=== PATIENT | male | born 1990 | race African-American/Black ===

== ENCOUNTER 2018-09-11 15:12 | Outpatient (CLI) | payer OTHER ==
--- NOTE | 2018-09-13 08:04 | MRI Report ---
Reason: PAIN IN LEFT KNEE Procedure Date: 09/11/2018 Accession Number: [id number] / [id number] Procedure: MRI - Knee LT W/O CPT Code: FULL RESULT: EXAM: LEFT KNEE MRI WITHOUT CONTRAST. EXAM DATE: 09/11/2018 04:20 PM. CLINICAL HISTORY: Left knee pain while playing football. Popping and clicking. History of ACL repair. COMPARISON: None. TECHNIQUE: Multiplanar, multisequence T1-weighted and fluid-sensitive sequences of the knee without contrast. Other: None. FINDINGS: Bones: No fractures. Periarticular reactive marrow edema is in the medial and lateral compartments. Minimal osteophytes are seen. Articular Cartilage: The patellofemoral articular cartilage is intact. There is moderate thinning and surface irregularity in the medial compartment. The inferior lateral femoral condyle articular cartilage has a focal area of severe cartilage loss. Medial Meniscus: The posterior horn of the medial meniscus contains an intrameniscal ossicle. Overall it is small in size, suggestive of partial meniscectomy. Lateral Meniscus: The lateral meniscus is intact. Cruciate Ligaments: The patient has had anterior cruciate ligament reconstruction procedure and the graft is completely torn. The posterior cruciate ligament is intact. Collateral Ligaments: The medial collateral and lateral collateral ligamentous structures are intact. Tendons: The quadriceps, patellar, semimembranosus, and popliteus tendons are unremarkable. Musculature: No edema or fatty atrophy. Other: A moderate effusion is seen. No popliteal cyst. No loose bodies. The medial and lateral retinacula are intact. The subcutaneous tissues and fat pads are unremarkable. IMPRESSION: 1. Mild osteoarthritis. 2. Degeneration of the medial meniscus. 3. Complete tear of anterior cruciate ligament reconstruction graft. 4. Moderate effusion. [facility] MUSCULOSKELETAL RADIOLOGY SECTION
== END 2018-09-11 15:13 | disposition home or self-care (01) ==
LOC: DI 15:12
PROVIDERS: ATTEND General Practice
DX: M17.12 Unilateral primary osteoarthritis, left knee (principal); S83.512A Sprain of anterior cruciate ligament of left knee, initial encounter; M25.462 Effusion, left knee; Z98.890 Other specified postprocedural states

== ENCOUNTER 2020-06-30 11:18 | Emergency (ER) | payer OTHER ==
--- NOTE | 2020-06-30 11:46 | ED Physician Documentation ---
PD HPI LOWER EXT INJURY - Stated complaint Stated Complaint: R LEG PAIN - Chief complaint Chief Complaint: Ext Problem - History obtained from History obtained from: Patient - History of Present Illness PD HPI LOW EXT INJURY LOCATION: Right, Thigh, Calf Type of injury: Other (worked out at gym as usual 5 days ago, doing leg workout particularly, and noted onset of some cramping pain thigh that progressed down to back of knee and calf as well the past couple days. No swelling in foot nor lower leg. No rash. Pain and aching is main complaint. No back pain.). No: Fall, Twist, Blunt / blow Timing - onset: How many days ago (5) Timing - duration: Days (5) Timing - details: Gradual onset, Still present Worsened by: Moving, Palpating Associated symptoms: No: Weakness, Numbness, Swelling Similar symptoms before: Has not had sx before Recently seen: Not recently seen Review of Systems Constitutional: denies: Fever, Chills Nose: denies: Rhinorrhea / runny nose, Congestion Throat: denies: Sore throat Cardiac: reports: Calf pain. denies: Chest pain / pressure, Palpitations, Pedal edema Respiratory: denies: Dyspnea, Cough GI: denies: Abdominal Pain Skin: denies: Rash, Lesions PD PAST MEDICAL HISTORY - Past Medical History Cardiovascular: None Respiratory: None Neuro: None Endocrine/Autoimmune: None GI: None : None HEENT: None Psych: None Musculoskeletal: None Derm: None - Past Surgical History Past Surgical History: Yes Ortho: Arthroscopic surgery - Present Medications Home Medications: Ambulatory Orders Medication Instructions Recorded Confirmed HYDROcod/ACETAM 5/325 [R[place]ledge 5/325] 1 ea PO Q6H PRN #15 tablet 06/30/20 Rivaroxaban [Xarelto] 15 mg PO BID 21 Days #42 tablet 06/30/20 - Allergies Allergies/Adverse Reactions: Allergies Allergy/AdvReac Type Severity Reaction Status Date / Time No Known Drug Allergies Allergy Verified 06/30/20 11:21 - Social History Does the pt smoke?: No Smoking Status: Never smoker Does the pt drink ETOH?: No Does the pt have substance abuse?: No - Immunizations Immunizations are current?: Yes PD ED PE NORMAL - Vitals Vital signs reviewed: Yes - General General: Alert and oriented X 3, No acute distress, Well developed/nourished - Neck Neck: Supple, no meningeal sign, No adenopathy - Cardiac Cardiac: RRR, No murmur - Respiratory Respiratory: Clear bilaterally - Abdomen Abdomen: Soft, Non tender - Back Back: No CVA TTP, No spinal TTP - Derm Derm: Normal color, Warm and dry, No rash - Extremities Extremities: No edema, Other (no swelling in foot nor ankle/leg. Has tenderness in medial calf on right and also medial thigh. No rash nor sores. ) - Neuro Neuro: Alert and oriented X 3, No motor deficit, No sensory deficit, Normal speech Eye Opening: Spontaneous Motor: Obeys Commands Verbal: Oriented GCS Score: 15 Results - Vitals Vitals: Vital Signs - 24 hr 06/30/20 06/30/20 11:23 15:22 Temperature 36.1 C L 36.8 C Heart Rate 67 63 Respiratory 16 16 Rate Blood Pressure 136/89 H 132/82 H O2 Saturation 100 100 Oxygen O2 Source Room air - Labs Labs: Laboratory Tests 06/30/20 06/30/20 14:20 14:20 WBC 6.3 RBC 4.51 L Hgb 13.7 L Hct 42.4 MCV 94.0 MCH 30.4 MCHC 32.3 RDW 12.8 Plt Count 239 MPV 9.4 Neut # (Auto) 3.8 Lymph # (Auto) 1.7 Barnes # (Auto) 0.4 Eos # (Auto) 0.2 Baso # (Auto) 0.0 Absolute Nucleated RBC 0.00 Nucleated RBC % 0.0 Total Creatine Kinase 211 C-Reactive Protein < 1.0 - Rads (name of study) duplex right leg Radiology: Prelim report reviewed (extensive clot right femoral down to posterior tibial. ), See rad report PD MEDICAL DECISION MAKING - ED course Complexity details: reviewed results (U/S showing extensive DVT. ), re-evaluated patient (He works out regularly and is very fit. The clot goes to femoral area. Consider if had mechanical process such as compartment tightness leading to venous pressure. No FH of clotting disorders. no recent illness. ), considered differential, d/w patient Departure - Departure Disposition: 01 Home, Self Care Clinical Impression: Right leg pain DVT (deep venous thrombosis) Qualifiers: DVT location: lower extremity Affected thrombotic vein of extremity: femoral Chronicity: acute Laterality: right Qualified Code(s): I82.411 - Acute embolism and thrombosis of right femoral vein Condition: Stable Record reviewed to determine appropriate education?: Yes Instructions: ED DVT Follow-Up: FRANCIA RUBI MD [Primary Care Provider] - Prescriptions: HYDROcod/ACETAM 5/325 [[place]ledge 5/325] 1 ea PO Q6H PRN #15 tablet PRN Reason: Pain Rivaroxaban [Xarelto] 15 mg PO BID 21 Days #42 tablet Comments: You do have a blood clot in the veins of your leg. We will start you on a anticoagulant (blood thinner) to prevent further clot formation and the clot will dissolve over time. I wrote the prescription for the initial blood thinners. Follow-up with your primary care for can recheck this coming week and they will need to continue on the further anticoagulants. Typically this will be 3 to 6 months but will be determined by your primary care. Regular light activity is okay. Avoid vigorous workouts and activity. 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 Tylenol every 4-6 hours if needed for pain. Add pain medicine if needed. Do not use any anti-inflammatories such as ibuprofen or naproxen in conjunction with the blood thinners. Follow-up with your primary care this coming week. Return if any abrupt chest pain, shortness of breath, fainting or other concerns. Forms: Activity restrictions Discharge Date/Time: 06/30/20 15:32
[2020-06-30] MEDS ORDERED: IBUPROFEN 600 MG TABLET PO STA (12:20)
[2020-06-30] MEDS ORDERED: ACETAMINOPHEN 325 MG TABLET PO STA (12:20)
--- NOTE | 2020-06-30 13:58 | Ultrasound Report ---
PROCEDURE: Duplex Ext Veins Right INDICATIONS: right inner thigh and calf pain; no injury TECHNIQUE: Real-time imaging, as well as color and pulse Doppler interrogation, were performed of the lower extr emity deep veins from the inguinal ligament to the popliteal fossa. COMPARISON: None. FINDINGS: There is extensive occlusive right lower extremity DVT which extends from the proximal righ t femoral vein to the posterior tibial vein in the calf. The common femoral vein, and greater saphenous vein are compressible. The profunda vein is patent. Th e peroneal veins in the calf demonstrate slow flow but are compressible. IMPRESSION: Positive exam. There is extensive occlusive right lower extremity DVT. Preliminary report was given to Dr. Cerda at 1:50 PM by the retort loader. Reviewed by: Gallito Ely MD on 06/30/2020 12:57 PM [facility] Approved by: Gallito Ely MD on 06/30/2020 12:57 PM [facility] Station ID: [id number]
[2020-06-30 14:31] LABS: BASOPHILS % (AUTO) 0.5 %; EOSINOPHILS # (AUTO) 0.2 10^3/uL (0.0-0.7); EOSINOPHILS % (AUTO) 3.2 %; HGB - HEMOGLOBIN 13.7 g/dL (14.0-18.0); LYMPHOCYTES # (AUTO) 1.7 10^3/uL (1.5-3.5); LYMPHOCYTES % (AUTO) 27.8 %; MEAN CORPUSCULAR HEMOGLOBIN 30.4 pg (27.0-31.0); MEAN CORPUSCULAR HGB CONC 32.3 g/dL (32.0-36.0); MEAN PLATELET VOLUME 9.4 fL (7.4-11.4); MONOCYTES # (AUTO) 0.4 10^3/uL (0.0-1.0); NEUTROPHILS # (AUTO) 3.8 10^3/uL (1.5-6.6); NEUTROPHILS % (AUTO) 61.2 %; PLT - PLATELET COUNT 239 10^3/uL (130-450); RED BLOOD COUNT 4.51 10^6/uL (4.70-6.10); RED CELL DISTRIBUTION WIDTH 12.8 % (12.0-15.0); WHITE BLOOD COUNT 6.3 x10^3/uL (4.8-10.8)
[2020-06-30] MEDS ORDERED: RIVAROXABAN 15 MG TABLET PO STA (14:34)
[2020-06-30 14:51] LABS: CK- CREATINE KINASE 211 IU/L (22-269)
[2020-06-30 14:52] LABS: CRP - C-REACTIVE PROTEIN < 1.0 mg/dL (0-1.0)
[2020-06-30 15:23] VITALS: BP 132/82
== END 2020-06-30 15:32 | disposition home or self-care (01) ==
LOC: ED 11:18
DX: I82.411 Acute embolism and thrombosis of right femoral vein (principal)
CPT/HCPCS: 36415; 82550; 85025; 86140; 93971; 99284; A9270